=== PATIENT | male | born 1950 | race Caucasian/White ===

== ENCOUNTER 2023-09-30 13:48 | Day surgery (SDC) | payer MEDICARE ==
[2023-09-30 14:16] LABS: #Basophils 0.04 10x3/uL (0.0-0.2); %Basophils 0.7 % (0.0-1.0); %Lymphocytes 5.2 % (21.0-51.0); %Monocytes 12.8 % (0.0-10.0); %Neutrophils 77.6 % (42.0-75.0); Hematocrit 50.8 % (42.0-52.0); Hemoglobin 17.5 g/dL (14.0-18.0); Mean Corpuscular HGB CONC 34.4 g/dL (32.0-36.0); Mean Corpuscular Hemoglobin 36.2 pg (27.0-31.0); Mean Platelet Volume 9.6 fL (7.4-10.4); Platelet Count 67 10x3/uL (130-400); RBC Distribution Width 20.2 % (11.5-14.5); Red Blood Cell (RBC) Count 4.84 mill/uL (4.70-6.10)
[2023-09-30 14:32] LABS: INR-International Normal Ratio 1.4; Prothrombin Time 16.9 sec (12.0-14.7)
[2023-09-30 14:33] LABS: PTT 64.6 sec (22.9-36.1)
[2023-09-30 14:41] LABS: Anisocytosis SLIGHT = 6-15 cells HPF (0-5); Platelet Adequacy Comment Platelets Decreased; Poikilocytosis SLIGHT = 6-15 cells HPF (0-5); Polychromasia SLIGHT = 2-3 cells HPF (0-2); RBC Morphology Within Normal Limits
== END 2023-09-30 16:00 | disposition home or self-care (01) ==
LOC: ULT 13:48
PROVIDERS: ATTEND Internal Medicine Gastroenterology
PROC: 0W9G3ZZ Drainage of Peritoneal Cavity, Percutaneous Approach (ICD-10-PCS; principal; 2023-09-30)
DX: C22.9 Malignant neoplasm of liver, not specified as primary or secondary (principal); R18.8 Other ascites; D66 Hereditary factor VIII deficiency; K59.09 Other constipation; K72.90 Hepatic failure, unspecified without coma; I85.00 Esophageal varices without bleeding; Z88.0 Allergy status to penicillin; Z88.2 Allergy status to sulfonamides
CPT/HCPCS: 36415; 49083; 85025; 85610; 85730